=== PATIENT | female | born 1985 | race Caucasian/White ===

== ENCOUNTER 2024-05-22 03:56 | Emergency (ER) | payer BC ==
[2024-05-22] MEDS ORDERED: LIDOCAINE 1% MPF 5 ML VIAL ONE (04:42)
--- NOTE | 2024-05-22 06:09 | EDPHYS ---
Physician Documentation [facility] Name: Althea John Age: 39 yrs Sex: Female : 1985 Arrival Date: 05/22/2024 Time: 03:56 Bed 6 Private MD: ED Physician Arnol Alfaro HPI: 05/22 06:54 This 39 yrs old Female presents to ER via Ambulatory with complaints of Fall Injury, rt Laceration To Forehead, Head Injury With LOC-Adult. 06:54 Patient presents to the ED with trip and fall. She sustained a laceration to the rt forehead, reports nasal pain. Denies neck pain, loss of conscious, did have a brief loss of consciousness but denies any preceding symptoms. Symptoms are moderate in severity, no other aggravating or alleviating factors.. 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 - Infectious Disease History:: Denies. - Immunization history: Last tetanus immunization: - up to date. - Social history:: Smoking status: Patient denies any tobacco usage or history of. - Family history:: not pertinent. ROS: 06:54 Constitutional: Negative for fever, chills, and weight loss, Cardiovascular: Negative rt for chest pain, palpitations, and edema, Respiratory: Negative for shortness of breath, cough, wheezing, and pleuritic chest pain, Abdomen/GI: Negative for abdominal pain, nausea, vomiting, diarrhea, and constipation, MS/Extremity: Negative for injury and deformity, 06:54 Skin: Positive for laceration(s), Negative for abrasions, Exam: 06:54 Constitutional: This is a well developed, well nourished patient who is awake, alert, rt and in no acute distress. Neck: Trachea midline, no thyromegaly or masses palpated, and no cervical lymphadenopathy. Supple, full range of motion without nuchal rigidity, or vertebral point tenderness. No Meningismus. Chest/axilla: Normal chest wall appearance and motion. Nontender with no deformity. No lesions are appreciated. Cardiovascular: Regular rate and rhythm with a normal S1 and S2. No gallops, murmurs, or rubs. Normal PMI, no JVD. No pulse deficits. Skin: Warm, dry with normal turgor. Normal color with no rashes, no lesions, and no evidence of cellulitis. MS/ Extremity: Pulses equal, no cyanosis. Neurovascular intact. Full, normal range of motion. Neuro: Awake and alert, GCS 15, oriented to person, place, time, and situation. Cranial nerves II-XII grossly intact. Motor strength 5/5 in all extremities. Sensory grossly intact. Cerebellar exam normal. Normal gait. 06:54 Head/face: Vertically oriented laceration to the forehead at about midline. in length, no active bleeding 4 cm. Vital Signs: 04:28 BP 129 / 92; Pulse 99; Resp 18; Temp 97.9; Pulse Ox 96% ; Weight 83 kg; Height 5 ft. 4 rg5 in. ; Pain 3/10; 05:03 BP 125 / 83; Pulse 88; Resp 17; Temp 98; Pulse Ox 97% on R/A; rg5 06:09 BP 113 / 75; Pulse 88; Resp 17; Temp 98; Pulse Ox 97% ; Pain 2/10; rg5 04:28 Body Mass Index 31.41 (83.00 kg, 162.56 cm) rg5 04:28 Pain Scale: Adult rg5 06:09 Pain Scale: Adult rg5 Arely Coma Score: 04:28 Eye Response: spontaneous(4). Motor Response: obeys commands(6). Verbal Response: rg5 oriented(5). Total: 15. Trauma Score (Adult): 04:28 Eye Response: spontaneous(1); Verbal Response: oriented(1); Motor Response: obeys rg5 commands(2); Systolic BP: > 89 mm Hg(4); Respiratory Rate: 10 to 29 per min(4); May Score: 15; Trauma Score: 12 Laceration: 06:54 Wound Repair of 4cm ( 1.6in ) subcutaneous laceration to forehead. Linear shaped.. rt Distal neuro/vascular/tendon intact. Anesthesia: Local anesthetic administered with 2 mls of 1% lidocaine. Wound prep: Copious irrigation. Skin closed with 9 5-0 Prolene using simple sutures and sterile technique. Dressed with 4x4's. Patient tolerated well. MDM: 04:12 Patient medically screened. rt 06:54 Differential diagnosis: Laceration, intracranial hemorrhage, fracture. Data reviewed: rt vital signs, nurses notes, radiologic studies. I considered the following discharge prescriptions or medication management in the emergency department Medications were administered in the Emergency Department. See MAR. Independent interpretation of the following test(s) in the Emergency Department CT Scan: My interpretation is No intracranial hemorrhage seen on interpretation of CT scan images. Counseling: I had a detailed discussion with the patient and/or guardian regarding the historical points, exam findings, and any diagnostic results supporting the discharge/admit diagnosis, radiology results, the need for outpatient follow up. Response to treatment: the patient's symptoms have markedly improved after treatment. 05/22 04:31 Order name: CT Head C Spine rt 05/22 04:31 Order name: CT Facial Bones W/O Con rt 05/22 04:31 Order name: Dressing - Wound; Complete Time: 06:08 rt 05/22 04:31 Order name: Gloves, Sterile; Complete Time: 06:08 rt 05/22 04:31 Order name: Setup Suture Tray; Complete Time: 06:08 rt Administered Medications: 06:08 Drug: Lidocaine Infiltration (1 %) 5 ml 5 ml Infiltration once; to bedside Volume: 5 kd3 ml; Route: Infiltration; Disposition Summary: 05/22/24 06:09 Discharge Ordered Notes: Location: Home rt Problem: new rt Symptoms: have improved rt Condition: Stable rt Diagnosis - Facial laceration rt Followup: rt - With: Private Physician - When: 7 - 10 days - Reason: Discharge Instructions: - Discharge Summary Sheet rt - Facial Laceration rt Forms: - Medication Reconciliation Form rt - Antibiotic Education rt - Prescription Opioid Use rt - Patient Portal Instructions rt - Leadership Thank You Letter rt Signatures: Dispatcher [employer] EDGanesh Avendaño RN RN jb4 Sonal Loya RN RN kd3 Arnol Alfaro MD MD rt Taras Loya RN RN rg5 Corrections: (The following items were deleted from the chart) 04:31 04:31 Facial Bones W/ MPR+CT.RAD.BRZ ordered. EDMS EDMS
--- NOTE | 2024-05-22 06:09 | ER ---
Nurse's Notes [facility] Name: Althea John Age: 39 yrs Sex: Female : 1985 Arrival Date: 05/22/2024 Time: 03:56 Bed 6 Private MD: Diagnosis: Facial laceration Presentation: 05/22 04:24 Chief complaint: Patient states: My [place] tripped me, I fell hitting my head on jb4 the hard would floor. I did pass out. I work up and tried to super glue the laceration on my head back together. It did not work, and I have a pins and needle sensation in both my hands. Care prior to arrival: None. Mechanism of Injury: Fall from standing position. Trauma event details: Injury occurred in the [facility]. 04:24 Acuity: NATALIA 2 jb4 04:24 Method Of Arrival: Ambulatory jb4 04:30 Coronavirus screen: At this time, the client does not indicate any symptoms associated jb4 with coronavirus-19. Ebola Screen: No symptoms or risks identified at this time. Initial Sepsis Screen: Does the patient meet any 2 criteria? No. Patient's initial sepsis screen is negative. Does the patient have a suspected source of infection? No. Patient's initial sepsis screen is negative. Risk Assessment: Do you want to hurt yourself or someone else? Patient reports no desire to harm self or others. Onset of symptoms was May 22, 2024. 04:30 Coronavirus screen: Vaccine status: Patient reports receiving the 1st dose of the Covid rg5 vaccine. Client denies travel out of the [place] in the last 14 days. Ebola Screen: Patient negative for fever greater than or equal to 101.5 degrees Fahrenheit, and additional compatible Ebola Virus Disease symptoms. Initial Sepsis Screen: Does the patient meet any 2 criteria? No. Patient's initial sepsis screen is negative. Does the patient have a suspected source of infection? No. Patient's initial sepsis screen is negative. Risk Assessment: Do you want to hurt yourself or someone else? Patient reports no desire to harm self or others. Onset of symptoms was May 22, 2024. Triage Assessment: 04:30 General: Appears comfortable, Behavior is calm, cooperative, appropriate for age. Pain: rg5 Complains of pain in forehead, nose and left side of the nose Pain currently is 3 out of 10 on a pain scale. Quality of pain is described as aching, Pain began 4 hours ago. 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 - Infectious Disease History:: Denies. - Immunization history: Last tetanus immunization: - up to date. - Social history:: Smoking status: Patient denies any tobacco usage or history of. - Family history:: not pertinent. Screenin:24 Abuse screen: Denies threats or abuse. Nutritional screening: No deficits noted. jb4 Tuberculosis screening: No symptoms or risk factors identified. Fall risk None identified. 04:30 [facility] ED Fall Risk Assessment (Adult) History of falling in the last 3 months, rg5 including since admission No falls in past 3 months (0 pts) Confusion or Disorientation No (0 pts) Intoxicated or Sedated No (0 pts) Impaired Gait No (0 pts) Mobility Assist Device Used No (0 pt) Altered Elimination Score/Fall Risk Level 0 - 2 = Low Risk Oriented to surroundings, Maintained a safe environment, Educated pt \T\ family on fall prevention, incl call for assistance when getting out of bed, Hourly rounding (assess needs \T\ fall precautionary measures) done. Primary Survey: 04:24 NO uncontrolled hemorrhage observed. A: The client is awake and alert. The airway is jb4 patent. Breathing/Chest: Spontaneous respiratory effort, equal unlabored respirations, breath sounds clear bilaterally, regular pattern, symmetrical chest rise and fall. Circulation: No external hemorrhage present. Regular and strong central pulse, skin warm/dry/normal color. Disability Pupils are equal, round, reactive to light and accommodation. Client is alert. Exposure/Environment: All clothing and personal items were removed. Forensic evidence collection is not deemed to be indicated at this time. Items placed in patient belonging bag. 05:01 Reassessment Breathing: Respiratory effort Spontaneous Respiratory pattern Regular. rg5 Secondary Survey: 04:24 HEENT: Head Other Laceration to forehead. Nose: Bruising and swelling to bridge of the jb4 nose.. Gastrointestinal: No deficits noted. : No signs and/or symptoms were reported regarding the genitourinary system. Musculoskeletal: No signs and/or symptoms reported regarding the musculoskeletal system. Injury Description: Laceration sustained to forehead is clean, 2.6 to 7.5 cm long. Assessment: 04:48 General: Appears in no apparent distress. Behavior is calm, cooperative, appropriate rg5 for age. Pain: Complains of pain in forehead and nose Pain currently is 2 out of 10 on a pain scale. Quality of pain is described as aching. EENT: Nares redness. Reports nasal congestion. Cardiovascular: Denies chest pain, Capillary refill < 3 seconds. Respiratory: Reports can't breath through the nose Onset: The symptoms/episode began/occurred just prior to arrival, GI: Abdomen is round non-distended. : No signs and/or symptoms were reported regarding the genitourinary system. Derm: Skin is intact, Skin temperature is warm Wound noted forehead Wound is lacerated secondary to fall. Musculoskeletal: Range of motion: intact in all extremities. Injury Description: Laceration sustained to forehead is clean, 2.6 to 7.5 cm long, was sustained 2-4 hours ago. a small amount of bleeding noted at this time. 05:50 Reassessment: Patient and/or family updated on plan of care and expected duration. Pain rg5 level reassessed. Patient is alert, oriented x 3, equal unlabored respirations, skin warm/dry/pink. 06:00 General: Provider at bedside for sutures . kd3 Vital Signs: 04:28 BP 129 / 92; Pulse 99; Resp 18; Temp 97.9; Pulse Ox 96% ; Weight 83 kg; Height 5 ft. 4 rg5 in. ; Pain 3/10; 05:03 BP 125 / 83; Pulse 88; Resp 17; Temp 98; Pulse Ox 97% on R/A; rg5 06:09 BP 113 / 75; Pulse 88; Resp 17; Temp 98; Pulse Ox 97% ; Pain 2/10; rg5 04:28 Body Mass Index 31.41 (83.00 kg, 162.56 cm) rg5 04:28 Pain Scale: Adult rg5 06:09 Pain Scale: Adult rg5 Arely Coma Score: 04:28 Eye Response: spontaneous(4). Motor Response: obeys commands(6). Verbal Response: rg5 oriented(5). Total: 15. Trauma Score (Adult): 04:28 Eye Response: spontaneous(1); Verbal Response: oriented(1); Motor Response: obeys rg5 commands(2); Systolic BP: > 89 mm Hg(4); Respiratory Rate: 10 to 29 per min(4); Tobias Score: 15; Trauma Score: 12 ED Course: 03:59 Patient arrived in ED. mr 04:06 Arnol Alfaro MD is Attending Physician. rt 04:24 Patient has correct armband on for positive identification. Call light in reach. Side jb4 rails up X 1. 04:24 O2 via RA. Thermoregulation: warm blanket given to patient. jb4 04:28 Taras Loya, RN is Primary Nurse. rg5 04:28 Triage completed. jb4 04:31 Arm band placed on right wrist. jb4 04:40 CT Head C Spine In Process Unspecified. EDMS 04:40 CT Facial Bones W/O Con In Process Unspecified. EDMS 05:03 Door closed. Noise minimized. Warm blanket given. rg5 06:03 No provider procedures requiring assistance completed. Patient did not have IV access rg5 during this emergency room visit. 06:24 Provided Education on: post er care. rg5 Administered Medications: 06:08 Drug: Lidocaine Infiltration (1 %) 5 ml 5 ml Infiltration once; to bedside Volume: 5 kd3 ml; Route: Infiltration; Medication: 05:01 VIS not applicable for this client. rg5 Intake: 04:30 PO: 250ml (Water); Total: 250ml. rg5 Outcome: 04:48 Patient's length of stay was not longer than 2 hours. rg5 06:09 Discharge ordered by . rt 06:24 Discharged to home ambulatory, with friend, rg5 06:24 Condition: stable 06:24 Discharge instructions given to patient, Instructed on follow up and referral plans. 06:25 Patient left the ED. rg5 Signatures: Dispatcher [employer] EDND Shante Avalos, Reg Reg mr ChrisGanesh, RN RN jb4 Sonal Loya RN RN kd3 Arnol Alfaro MD MD rt Taras Loya RN RN rg5 Corrections: (The following items were deleted from the chart) 06:08 04:28 BP 129 / 92; Pulse 99bpm; Resp 18bpm; Pulse Ox 96%; Temp 97.9F; 83 kg; Height 5 rg5 ft. 4 in.; BMI: 31.4; Pain 6/10, Adult; rg5 06:08 04:30 Pain: Complains of pain in forehead, nose and left side of the nose Pain rg5 currently is 7 out of 10 on a pain scale. Quality of pain is described as aching, Pain began 4 hours ago. rg5
[2024-05-22 06:39] VITALS: BP 113/75; TEMP 98; O2SAT 97
--- NOTE | 2024-05-22 17:33 | RAD REPORT ---
EXAM DESCRIPTION: CT - Head C Spine Mpr Wo Con - 05/22/2024 6:50 am CLINICAL HISTORY: TRAUMA COMPARISON: None available TECHNIQUE: Axial CT of the head obtained from the skull apex to the skull base without contrast. Axi al CT images of the facial bones obtained without contrast. Axial CT images of the cervical spine obt ained without contrast. This exam was performed according to our departmental dose-optimization progr am, which includes automated exposure control, adjustment of the mA and/or kV according to patient si ze and/or use of iterative reconstruction technique. FINDINGS: Head CT: No acute intracranial hemorrhage identified. No mass, mass effect, shift of the midline, abnormal ext ra-axial fluid collection or CT evidence of acute ischemic change identified. The ventricular system is unremarkable. No acute abnormalities of the supratentorial white matter, basal ganglia, cerebell um, or brainstem. No skull fracture identified. Facial Bone CT: Orbits: Orbital floors and brown are intact. Intraorbital contents: The globes are intact. Extraocular muscles are symmetric. No intraconal fat st randing. Nasal bones: Intact. Maxilla: The maxillary hard palate is intact. Maxillary antral brown are intact. Sinuses: Paranasal sinuses are well aerated. Zygomatic processes: Intact Pterygoid plates: Intact Mandible: Intact. No mandibular condylar dislocation. Skull base/cervical spine: Visualized portions of the skull base and cervical spine are intact. Visua lized mastoid air cells are well aerated. Subcutaneous soft tissues: No abnormality noted in the subcutaneous soft tissues. Neck soft tissues: No definite abnormality involving the nasopharynx, oropharynx, or hypopharynx. Fos sa of Rosenmuller are clear. Parotid glands and submandibular glands are unremarkable. No cervical ly mphadenopathy. Cervical CT : Straightening of the cervical lordosis may be secondary to patient positioning. The atlantoaxial, a tlantodental, and occipitoatlantal intervals are preserved. No fracture identified. Vertebral body height preserved. Prevertebral soft tissues are unremarkable. Mild to moderate multilevel loss of intervertebral disc height with endplate spondylosis, facet arthr opathy, and uncovertebral spurring. Posterior disc osteophyte complex at multiple levels mildly encro ach upon the anterior spinal canal. Mild neural foraminal narrowing. Visualized skull base is intact. Visualized thyroid is unremarkable. No cervical lymphadenopathy. No pneumothorax in the visualized lung apices. IMPRESSION: 1. No acute intracranial abnormality identified. 2. No acute facial bone fracture. 3. No acute fracture or subluxation of the cervical spine. Electronically signed by: Hima Mora DO 05/22/2024 05:01 AM CDT RP [id number] Due to temporary technical issues with the PACS/Fluency reporting system, reports are being signed by the in house radiologists without review as a courtesy to insure prompt reporting. The interpreting radiologist is fully responsible for the content of the report.
== END 2024-05-22 06:25 | disposition home or self-care (01) ==
LOC: ER 03:56
PROC: 0HQ1XZZ Repair Face Skin, External Approach (ICD-10-PCS; principal; 2024-05-22)
DX: S01.81XA Laceration without foreign body of other part of head, initial encounter (principal)
CPT/HCPCS: 70450; 72125; 70486; 76377; 99285; 12013; J2001

== ENCOUNTER 2025-03-13 06:20 | Day surgery (SDC) | payer BC ==
[2025-03-13 06:36] LABS: Absolute Basophils 0.1 K/uL (0-0.5); Absolute Eosinophils 0.1 K/uL (0-0.5); Absolute Lymphocytes (CBC) 2.9 K/uL (0.7-4.9); Absolute Monocytes 0.6 K/uL (0.1-1.3); Absolute Neutrophil 5.2 K/uL (1.8-8.0); Basophils % 0.9 % (0-1.3); Eosinophils % 1.6 % (0-4.4); Hematocrit 40.2 % (36.0-45.0); Hemoglobin 14.1 g/dL (12.0-15.0); Lymphocytes % 32.2 % (15.3-44.8); MCH 33.3 pg (27.0-35.0); MCHC 35.2 g/dL (32.0-36.0); MCV 94.7 fL (80-100); Neutrophils % 58.3 % (41.7-73.7); Platelets 307 thou/uL (152-406); RBC Red Blood Cell Count 4.24 M/uL (3.86-4.86); Red Cell Distribution Width 13.5 % (12.1-15.2)
[2025-03-13] MEDS ORDERED: BUPIVACAINE 0.5% PF 10 ML VIAL ONE (06:38)
[2025-03-13] MEDS ORDERED: EPINEPHRINE 1 MG/ML VIAL ONE (06:39)
[2025-03-13] MEDS ORDERED: MIDAZOLAM HCL 2 MG/2 ML INJ ONE (06:39)
[2025-03-13] MEDS ORDERED: FENTANYL CITR 100 MCG/2 ML ONE (06:39)
[2025-03-13] MEDS ORDERED: dexAMETHasone 10 MG/ML VIAL ONE ×2 (06:39→07:59)
[2025-03-13] MEDS ORDERED: LIDOCAINE 1% MPF 5 ML VIAL ONE (06:46)
[2025-03-13] MEDS ORDERED: CEFAZOLIN SODIUM 1 GM/VIAL ONE (06:48)
[2025-03-13] MEDS ORDERED: Ringers Lactate 1,000 ML IV ONE (06:48)
[2025-03-13 06:59] LABS: Urine Specific Gravity/Preg >1.030 (1.005-1.030)
[2025-03-13 06:59] LABS: Anion Gap 10.1 mEq/L (5.0-15.0); Potassium 4.1 mEq/L (3.5-5.1)
[2025-03-13] MEDS ORDERED: KETOROLAC 30 MG/ML INJ ONE (07:59)
[2025-03-13] MEDS ORDERED: LIDOCAINE 2% MPF 5 ML VIAL ONE (07:59)
[2025-03-13] MEDS ORDERED: ONDANSETRON 4 MG/2 ML VIAL ONE (07:59)
[2025-03-13] MEDS ORDERED: ROCURONIUM 50 MG/5 ML VIAL IV ONE (07:59)
[2025-03-13] MEDS ORDERED: propofoL 200 MG/20 ML VIAL IV ONE (07:59)
--- NOTE | 2025-03-13 10:35 | OP ---
Date of Procedure: 03/13/2025 Surgeon: Ford Barron MD Preoperative Diagnosis: Right Achilles tendon rupture. Postoperative Diagnosis: Right Achilles tendon rupture. Procedure: Right Achilles tendon repair. Estimated Blood Loss: Less than 10 cc. Complications: There were no complications. Specimens: No pathology specimens sent. Indication For Operation: Ms. John is a 40-year-old female who unfortunately made a small jump when she felt a significant pop related to her ankle and she had immediate pain. The pain was actually n ot so severe when she came to see me in the office; however, she noticed weakness related to her foot . Tonsils does demonstrated a ruptured Achilles tendon. To confirm as there was no obvious gap felt and also preoperatively to locate the location of the Achilles tendon tear, an MRI was done, which d emonstrated a tear at the myotendinous junction as well as some small intact fibers, although these a re very scanty. Risks, benefits, and alternatives of different methods of treating this, including n onoperative management were discussed with the patient. She states she understands things as present ed and wishes to proceed with repair. Description Of Procedure: The patient was taken to the operating room, placed in supine position. G eneral anesthesia was obtained by anesthesia staff. Following this, she was then well prone with all bony prominences being checked with anesthesia. She had previously had a block in the holding area. A well-padded tourniquet was placed on superior right thigh. Right lower extremity was then preppe d and draped in usual sterile fashion for procedure with care being taken to have the knee free. Aft er this, an incision was made medial to the tendon, carefully through skin only. Meticulous hemostas is being maintained using Bovie electrocautery. This was established with a full-thickness flap as t he paratenon is open. Once the paratenon was open, there was a bain of fluid and the ruptured Achill es tendon is obviously seen. The plantaris tendon is intact. The Achilles tendon tear is quite prox imal with only a small nub of tendon attached to the muscle. Decision was made to move forward and a #2 FiberWire is then placed within the muscle and remaining tendon proximally. This was pulled on q uite vigorously to ensure that this does have a good hold in the remaining tendon and muscle. Follow ing this, the suture was then weaved through the distal intact Achilles with a slight amount of mandy ing done of disrupted fibers and it is tensioned with the knee in flexion to appropriate plantar flex ion angle, it was held and the foot was released. It was found to hold quite well. After this, the suture was tied. A small amount of trimming is done again and the paratenon is then closed using run amada 2-0 Vicryl suture. A few Vicryl were then placed in the skin to ensure good coverage of the ten don and the remaining closure was done with horizontal mattress nylon sutures. The patient was then placed in an extremely well-padded plantar flexion, gravity position with a posterior splint and U. The patient was then awakened and taken to recovery room in good condition. There were no complicati ons. /KIN Voice ID: [id number] Report ID: [id number]
[2025-03-13 11:37] VITALS: BP 134/77; TEMP 97.5; O2SAT 99
--- NOTE | 2025-03-16 12:19 | EKG ---
Test Date: 2025-03-13 Test Time: 06:46:03 Therapeutic Recreation Specialist: EMERITA MEASUREMENT RESULTS: Intervals: Rate: 75 WA: 118 QRSD: 86 QT: 406 QTc: 453 [place]: P: 30 WA: 118 QRS: 56 T: 49 INTERPRETIVE STATEMENTS: Normal sinus rhythm Normal ECG Compared to ECG 10/01/2008 16:18:42 No significant changes Electronically Signed On 03-16-25 12:10:38 CDT by Ramirez Gan
== END 2025-03-13 11:34 | disposition home or self-care (01) ==
LOC: OR 06:20
PROVIDERS: ATTEND Orthopaedic Surgery
PROC: 0LQN0ZZ Repair Right Lower Leg Tendon, Open Approach (ICD-10-PCS; principal; 2025-03-13 08:00)
DX: S86.011D Strain of right Achilles tendon, subsequent encounter (principal)
CPT/HCPCS: 93005; 85025; 80048; 36415; 81025; 27650; J2704; J2003 ×2; J2250; J3010; J1100 ×2; J0171; J2405; J7120; J0690